=== PATIENT | female | born 2000 | race Caucasian/White ===

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

== ENCOUNTER 2023-07-21 23:39 | Emergency (ER) | payer OTHER ==
[2023-07-21 23:54] VITALS: BP 137/87; O2SAT 98
--- NOTE | 2023-07-22 00:17 | ED Physician Documentation ---
PD HPI HEADACHE - Stated complaint Stated Complaint: HIT HEAD - Chief complaint Chief Complaint: Heent - History obtained from History obtained from: Patient - Additional information Additional information: 22yF, history of anxiety, otherwise previously healthy, presents to the ED s/p fall from her boyfriend's shoulders, hitting her head on hardwood floor around 10:30pm. patient states she had a panic attack at the time of the incident and felt nauseous and dizzy but now is feeling better. denies vomiting, confusion, vision changes. PD PAST MEDICAL HISTORY - Past Medical History Psych: Depression, Anxiety - Past Surgical History Past Surgical History: No - Present Medications Home Medications: Ambulatory Orders Medication Instructions Recorded Confirmed Citalopram [CeleXA] 20 mg PO DAILY 11/12/18 11/12/18 Propranolol [Inderal] 20 mg PO BID 11/12/18 11/12/18 - Allergies Allergies/Adverse Reactions: Allergies Allergy/AdvReac Type Severity Reaction Status Date / Time No Known Drug Allergies Allergy Verified 07/21/23 23:51 - Social History Does the pt smoke?: No Smoking Status: Never smoker Does the pt drink ETOH?: No Does the pt have substance abuse?: No - Immunizations Immunizations are current?: Yes Immunizations: TDAP current <10years - POLST Patient has POLST: No PD ED PE NORMAL - Vitals Vital signs reviewed: Yes - General General: Alert and oriented X 3, No acute distress, Well developed/nourished - HEENT HEENT: Atraumatic, PERRL, EOMI, Moist mucous membranes, Pharynx benign - Neck Neck: Supple, no meningeal sign, No bony TTP, C-Spine cleared by NEXUS criteria - Cardiac Cardiac: RRR - Respiratory Respiratory: No respiratory distress - Abdomen Abdomen: Non tender, Non distended - Back Back: No spinal TTP - Derm Derm: Normal color, Warm and dry - Neuro Neuro: Alert and oriented X 3, 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 she is well appearing with normal neurologic exam. low suspicion for concussion at this time. reasons for return discussed. plan to f/u with pcp. Departure - Departure Disposition: 01 Home, Self Care Clinical Impression: Head injury Condition: Stable Instructions: ED Head Injury Closed Comments: You were seen in the emergency department for Medical evaluation after hitting her head. You have a normal neurologic exam and no signs of concussion as of now. Things to look out for include severe persistent headache that doesn't get better with advil or tylenol, confusion, fainting episode, or persistent vomit ing. If you experience these things then please go to the nearest ED for evaluation. Please follow-up with your primary care provider and return to the emergency department if you have any new or worsening symptoms or other concerns. Forms: PCP List
== END 2023-07-22 00:17 | disposition home or self-care (01) ==
LOC: ED 07-22 00:01
DX: S09.90XA Unspecified injury of head, initial encounter (principal); W17.89XA Other fall from one level to another, initial encounter
CPT/HCPCS: 99281; 99283

== ENCOUNTER 2023-09-22 09:39 | Outpatient (CLI) | payer OTHER ==
[2023-09-22 14:51] LABS: BASOPHILS % (AUTO) 0.8 %; EOSINOPHILS # (AUTO) 0.1 10^3/uL (0.0-0.7); EOSINOPHILS % (AUTO) 2.3 %; HCT - HEMATOCRIT 40.5 % (37.0-47.0); HGB - HEMOGLOBIN 13.2 g/dL (12.0-16.0); LYMPHOCYTES # (AUTO) 1.3 10^3/uL (1.5-3.5); LYMPHOCYTES % (AUTO) 32.9 %; MEAN CORPUSCULAR HEMOGLOBIN 31.4 pg (27.0-31.0); MEAN CORPUSCULAR HGB CONC 32.6 g/dL (32.0-36.0); MEAN CORPUSCULAR VOLUME 96.2 fL (81.0-99.0); MEAN PLATELET VOLUME 9.8 fL (7.9-10.8); MONOCYTES # (AUTO) 0.4 10^3/uL (0.0-1.0); MONOCYTES % (AUTO) 10.7 %; NEUTROPHILS # (AUTO) 2.1 10^3/uL (1.5-6.6); PLT - PLATELET COUNT 266 10^3/uL (130-450); RED BLOOD COUNT 4.21 10^6/uL (4.20-5.40); RED CELL DISTRIBUTION WIDTH 11.9 % (12.0-15.0); WHITE BLOOD COUNT 3.9 x10^3/uL (4.8-10.8)
[2023-09-22 16:00] LABS: ALBUMIN 4.6 g/dL (3.2-5.5); ALBUMIN/GLOBULIN RATIO 2.3 (1.0-2.2); BILIRUBIN,TOTAL 0.6 mg/dL (0.2-1.0); CALCIUM 9.2 mg/dL (8.5-10.3); CREATININE 0.6 mg/dL (0.6-1.3); POTASSIUM 3.8 mmol/L (3.5-4.5); TOTAL PROTEIN 6.6 g/dL (6.4-8.9)
== END 2023-09-22 09:40 | disposition home or self-care (01) ==
LOC: LAB.S 09:39
PROVIDERS: ATTEND Registered Nurse
DX: Z79.899 Other long term (current) drug therapy (principal)
CPT/HCPCS: 36415; 80053; 85025

== ENCOUNTER 2023-10-13 07:00 | Outpatient (CLI) | payer OTHER | END 2023-10-13 23:59 | disposition home or self-care (01) | LOC: LAB.S 07:00 | PROVIDERS: ATTEND Physician Assistant | DX: N39.0 Urinary tract infection, site not specified (principal) | CPT/HCPCS: 87086; 87181 ==